=== PATIENT | male | born 1965 | race Hispanic/Latino ===

== ENCOUNTER → 2019-02-22 | Day surgery (SDC) | payer OTHER ==
[~2019-02-22] MED LIST: LIDOCAINE HCL 2% LOCAL INJ 5 ML SDV VIAL INJ ONE; MIDAZOLAM HCL 2 MG/2 ML VIAL ONE; OMEPRAZOLE40 MG PO; PROPOFOL IV EMULSION 10 MG/ML 20 ML VIAL ONE
--- OUTSIDE RECORDS SUMMARY | 2019-02-22 09:06 | XMS REPORT | Clinical Summary ---
Author Author [facility] Organization [facility] Address Unknown Phone Unavailable Care Team Providers Care Clay Miller Name Role Phone Asked, No Pcp PCP Unavailable Allergies No Known Allergies Medications Not on file Active Problems Not on file Encounters Care Team Description Date Type Specialty Guanakito Johnson DO Patient left without being seen (Primary Dx) 02/19/2019 Emergency Emergency Medicine after 02/21/2018 Social History Date Tobacco Use Types Packs/Day Years Used Never Assessed Sex Assigned at Date Recorded Not on file Industry Job Start Date Occupation Not on file Not on file Not on file Travel End Travel History Travel Start No recent travel history available. 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
[2019-02-22 13:20] VITALS: BP 113/75
== END | disposition home or self-care (01) ==
LOC: OR 09:00
PROVIDERS: ATTEND Internal Medicine
DX: C16.3 Malignant neoplasm of pyloric antrum (principal); R14.0 Abdominal distension (gaseous); R10.9 Unspecified abdominal pain; R63.4 Abnormal weight loss; Z01.810 Encounter for preprocedural cardiovascular examination; R11.2 Nausea with vomiting, unspecified; K29.70 Gastritis, unspecified, without bleeding; B96.81 Helicobacter pylori [H. pylori] as the cause of diseases classified elsewhere
CPT/HCPCS: 43239; 45378; 93005; J2001; J2250; J2704